=== PATIENT | female | born 1980 ===

== ENCOUNTER 2024-11-01 11:45 | Emergency (ER) | payer MEDICAID, SELFPAY ==
--- OUTSIDE RECORDS SUMMARY | 2019-08-24 07:37 | XMS_ITS | Continuity of Care Document ---
Author Organization [facility] vices Address [address] [place] [address] Phone Care Team Providers Care Flower Maker Name Role Phone Generic Provider, [facility] Unavailable Unavailabl e Allergies, Adverse Reactions, Alerts Substance Reaction Status Criticality tramadol Unknown Active No Information Penicillins Unknown Active No Information ibuprofen Unknown Active No Information Medications Medication Instructions Dosage Effective Dates (start - stop) Status Comments Cymbalta 30 mg capsule,delayed release TAKE 1 CAPSULE BY ORAL ROUTE EVERY DAY - Active Jentadueto 2.5 mg-1,000 mg tablet take 1 tablet by oral route 2 times every day with meals 1.00 tablet - Active E11.65 99 years Anabel Mcintyre U-300 Insulin 300 unit/mL (1.5 mL) subcutaneous pen INJECT 12 UNITS UNDER THE SKIN ONCE DAILY. - Active E11.65 99 years promethazine 25 mg tablet take 1 tablet by oral route every 4 - 6 hours as needed 25 MG - Active PIOGLITAZONE 30MG TAB TABLET TAKE 1 TABLET BY ORAL ROUTE EVERY DAY 30 MG - Active GABAPENTIN 600MG TAB TABLET TAKE 1 TABLET BY ORAL ROUTE 3 TIMES EVERY DAY 600 MG - Active atorvastatin 20 mg tablet take 1 tablet by oral route every day 20 MG - Active Alcohol Pads apply 1 unit by topical route 3 times every day when checking blood sugars E11.65 - Active Duration-99 years hydroxyzine HCl 25 mg tablet take 1 tablet by oral route 3 times every day as needed for anxiety 25 MG - Active use every 6-8 hours for itchyness lancets To test sugars 6 times a day - Active E11.9 99 years OneTouch Verio strips to test sugars 6 times a day E11.65 x 99years - Active OneTouch Verio IQ Meter Use as directed dx E11.65 - Active 99 years nicotine 21 mg/24 hr daily transdermal patch apply 1 patch by transdermal route every day and remove at bedtime 21 MG - Active baclofen 10 mg tablet take 1 tablet by oral route 3 times every day for withdrawal 10 MG - Active ONE TOUCH ULTRA TEST STRI TEST BLOOD SUGAR 6 TIMES A DAY 1 test strip - Active Procedures Procedure Date GLUCOSE BLOOD TEST GLYCATED HEMOGLOBIN TEST (A1C) 19 OFFICE/OUTPATIENT VISIT, EST GLUCOSE BLOOD TEST OFFICE/OUTPATIENT VISIT, EST PATIENT NOT SEEN GLUCOSE BLOOD TEST OFFICE/OUTPATIENT VISIT, EST GLUCOSE BLOOD TEST OFFICE/OUTPATIENT VISIT, EST GLUCOSE BLOOD TEST OFFICE/OUTPATIENT VISIT, EST Psych Diag Eval W/Med Serv Psychotherapy, 30 Minutes With Patient A OFFICE/OUTPATIENT VISIT, EST GLUCOSE BLOOD TEST OFFICE/OUTPATIENT VISIT, EST GLUCOSE BLOOD TEST OFFICE/OUTPATIENT VISIT, EST BH NO CHARGE GLUCOSE BLOOD TEST OFFICE/OUTPATIENT VISIT, EST GLUCOSE BLOOD TEST GLYCATED HEMOGLOBIN TEST (A1C) 19 OFFICE/OUTPATIENT VISIT, EST GLUCOSE BLOOD TEST OFFICE/OUTPATIENT VISIT, EST GLUCOSE BLOOD TEST OFFICE/OUTPATIENT VISIT, EST GLUCOSE BLOOD TEST OFFICE/OUTPATIENT VISIT, EST GLUCOSE BLOOD TEST GLYCATED HEMOGLOBIN TEST (A1C) 18 OFFICE/OUTPATIENT VISIT, EST OFFICE/OUTPATIENT VISIT, EST OFFICE/OUTPATIENT VISIT, EST GLUCOSE BLOOD TEST OFFICE/OUTPATIENT VISIT, EST GLUCOSE BLOOD TEST OFFICE/OUTPATIENT VISIT, EST GLUCOSE BLOOD TEST GLYCATED HEMOGLOBIN TEST (A1C) 18 OFFICE/OUTPATIENT VISIT, EST GLUCOSE BLOOD TEST OFFICE/OUTPATIENT VISIT, EST URINE TEST, BY VISUAL COLOR CO MPARISON OFFICE/OUTPATIENT VISIT, EST Psychotherapy, 45 Minutes With Patient N GLUCOSE BLOOD TEST GLYCATED HEMOGLOBIN TEST (A1C) 17 OFFICE/OUTPATIENT VISIT, EST GLUCOSE BLOOD TEST URINALYSIS NONAUTO W/O SCOPE URINE TEST, BY VISUAL COLOR CO MPARISON OFFICE/OUTPATIENT VISIT, EST GLUCOSE BLOOD TEST OFFICE/OUTPATIENT VISIT, EST OFFICE/OUTPATIENT VISIT, EST GLUCOSE BLOOD TEST GLYCATED HEMOGLOBIN TEST (A1C) 17 URINALYSIS NONAUTO W/O SCOPE OFFICE/OUTPATIENT VISIT, EST GLUCOSE BLOOD TEST BENEDRYL, TABLET, 25 MG DRAINAGE OF SKIN ABSCESS OFFICE/OUTPATIENT VISIT, EST GLUCOSE BLOOD TEST OFFICE/OUTPATIENT VISIT, EST GLUCOSE BLOOD TEST GLYCATED HEMOGLOBIN TEST (A1C) 17 OFFICE/OUTPATIENT VISIT, EST GLUCOSE BLOOD TEST OFFICE/OUTPATIENT VISIT, EST Psych Dx Eval Psychotherapy, 30 Minutes With Patient J GLUCOSE BLOOD TEST GLYCATED HEMOGLOBIN TEST (A1C) 16 OFFICE/OUTPATIENT VISIT, EST GLUCOSE BLOOD TEST OFFICE/OUTPATIENT VISIT, NEW GLUCOSE BLOOD TEST OFFICE/OUTPATIENT VISIT, EST GLUCOSE BLOOD TEST GLYCATED HEMOGLOBIN TEST (A1C) 16 URINALYSIS NONAUTO W/O SCOPE OFFICE/OUTPATIENT VISIT, EST GLUCOSE BLOOD TEST OFFICE/OUTPATIENT VISIT, EST GLYCATED HEMOGLOBIN TEST (A1C) 16 GLUCOSE BLOOD TEST URINALYSIS NONAUTO W/O SCOPE OFFICE/OUTPATIENT VISIT, EST GLUCOSE BLOOD TEST OFFICE/OUTPATIENT VISIT, EST PsyTXPT And Family 30 Minutes 5 GLUCOSE BLOOD TEST OFFICE/OUTPATIENT VISIT, EST GLUCOSE BLOOD TEST OFFICE/OUTPATIENT VISIT, EST GLUCOSE BLOOD TEST OFFICE/OUTPATIENT VISIT, NEW Advance Directives Directive Yes / No Effective Date File Name No Information Encounters Encounter Description Practice Location Reason(s) For Visit Diagnoses Date Provider Providers Copied on Encounter [facility], [address] [place] [address], [facility], tel:[phone] [facility] Womens Health No Information 0 Generic Provider [facility]. . [facility], [address] [place] [address], [facility], tel:[phone] [facility] Adult Medicine No Information 0 No Information [facility], [address] [place] [address], [facility], tel:[phone] [facility] Adult Medicine No Information 9 No Information [facility], [address] [place] [address], [facility], [place] tel:[phone] [facility] Adult Medicine No Information 9 [facility]. [address] [place] [address], [id number] [place], [facility], [place]. tel:[phone] OFFICE/OUTPA TIENT VISIT, EST [facility], [address] [place] [address], [facility], [place] tel:[phone] [facility] Adult Medicine Follow up (chief complaint) Body mass index (BMI) 45.0-49.9, adultEncounte r for screening, unspecifiedTy pe 2 diabetes mellitus without complications Generalized anxiety disorder Nov-0 9 No Information OFFICE/OUTPA TIENT VISIT, [facility], [address] [place] [address], [address], [place] tel:[phone] [facility] Adult Medicine Med Refills (chief complaint) Body mass index (BMI) 40.0-44.9, adultEncounte r for screening for diabetes mellitusType 2 diabetes mellitus with diabetic neuropathy, unspecifiedMe dication refill Sep-3 9 [facility]. [address] [place] [address], [id number] [place], [address], [place]. tel:[phone] [facility], [address] [place] [address], [facility], [place] tel:[phone] [facility] Adult Medicine Meds Concern (chief complaint) Body mass index (BMI) 40.0-44.9, adultEncounte r for screening, unspecified Jul-2 9 No Information OFFICE/OUTPA TIENT VISIT, [facility], [address] [place] [address], [address], [place] tel:[phone] [facility] Adult Medicine Follow Up (chief complaint)di abetes (chief complaint) Body mass index (BMI) 39.0-39.9, adultEncounte r for screening, unspecifiedTy pe 2 diabetes mellitus without complications Generalized anxiety disorder Jul-0 9 No Information OFFICE/OUTPA TIENT VISIT, [facility], [address] [place] [address], [facility], [place] tel:[phone] [facility] Adult Medicine Follow up (chief complaint) Encounter for screening, unspecifiedBo dy mass index (BMI) 38.0-38.9, adultType 2 diabetes mellitus without complications 9 No Information OFFICE/OUTPA TIENT VISIT, [facility], [address] [place] [address], [address], [place] tel:[phone] [facility] Adult Medicine Panic attack (chief complaint) Body mass index (BMI) 38.0-38.9, adultEncounte r for screening for diabetes mellitusType 2 diabetes mellitus without complication, with long-term current use of insulinLong term (current) use of insulinPanic attacks 9 No Information Psych Diag Eval W/Med Serv [facility], [address] [place] [address], [address], [place] tel:[phone] [facility] Behavioral Health Moderate opioid use disorderCocai ne use disorder, moderate 9 No Information Psychotherap y, 30 Minutes With Patient [facility], [address] [place] [address], [address], [place] tel:[phone] [facility] Behavioral Health BH Consult (chief complaint) Moderate opioid use disorderCocai ne use disorder, moderate May-3 9 [facility] [place] [address], [id number] [place], [id number], [place]. tel:[phone] OFFICE/OUTPA TIENT VISIT, [facility], [address] [place] [address], [address], [place] tel:[phone] [facility] Adult Medicine Nausea medications request (chief complaint) Body mass index (BMI) 38.0-38.9, adultNauseaOp ioid withdrawal May-2 9 No Information OFFICE/OUTPA TIENT VISIT, [facility], [address] [place] [address], [address], [place] tel:[phone] [facility] Adult Medicine Referral request (chief complaint) Body mass index (BMI) 38.0-38.9, adultEncounte r for screening, unspecifiedSu bstance abuseCurrent moderate episode of major depressive disorder without prior episodeGenera lized anxiety disorder May- 9 No Information OFFICE/OUTPA TIENT VISIT, [facility], [address] [place] [address], [address], [place] tel:[phone] [facility] Adult Medicine Addiction treatment information (chief complaint) Body mass index (BMI) 37.0-37.9, adultEncounte r for screening, unspecifiedDr ug abuse counseling and surveillance of drug abuser May-0 9 No Information [facility], [address] [place] [address], [address], [place] tel:[phone] [facility] Behavioral Health depression (chief complaint)garcia bstance abuse (chief complaint) Cocaine abuse w/ psychosisOpio id use, unspecified, uncomplicated Unspecified mood [affective] disorderCanna bis dependence 9 No Information OFFICE/OUTPA TIENT VISIT, [facility], [address] [place] [address], [address], [place] tel:[phone] [facility] Adult Medicine High blood sugars (chief complaint) Body mass index (BMI) 37.0-37.9, adultEncounte r for screening, unspecifiedTy pe 2 diabetes mellitus without complications 9 No Information OFFICE/OUTPA TIENT VISIT, [facility], [address] [place] [address], [address], [place] tel:[phone] [facility] Adult Medicine Transfer Care (chief complaint) Body mass index (BMI) 37.0-37.9, adultEncounte r for screening, unspecifiedHe althcare maintenanceAg oraphobia with panic disorderGener alized anxiety disorderType 2 diabetes mellitus without complications 9 No Information [facility], [address] [place] [address], [address], [place] tel:[phone] [facility] Adult Medicine No Information No Information OFFICE/OUTPA TIENT VISIT, [facility], [address] [place] [address], [address], [place] tel:[phone] [facility] Adult Medicine headache (chief complaint) Body mass index (BMI) 40.0-44.9, adultEncounte r for screening, unspecifiedIn tractable headache, unspecified chronicity pattern, unspecified headache type 8 No Information OFFICE/OUTPA TIENT VISIT, [facility], [address] [place] [address], [address], [place] tel:[phone] [facility] Adult Medicine Med. refill (chief complaint) Body mass index (BMI) 40.0-44.9, adultEncounte r for screening, unspecifiedTy pe 2 diabetes mellitus with diabetic polyneuropath y, with long-term current use of insulinLong term (current) use of insulinEmerge ncy contraception 8 No Information OFFICE/OUTPA TIENT VISIT, [facility], [address] [place] [address], [address], [place] tel:[phone] [facility] Adult Medicine med refill (chief complaint) Body mass index (BMI) 40.0-44.9, adultEncounte r for screening, unspecifiedCo dalila abuse 8 No Information OFFICE/OUTPA TIENT VISIT, [facility], [address] [place] [address], [address], [place] tel:[phone] [facility] Adult Medicine Med Refill (chief complaint)di abetes (chief complaint) Depression, unspecified depression typeGeneraliz ed anxiety disorderPainf ul diabetic neuropathyTyp e 2 diabetes mellitus with hyperglycemia , with long-term current use of insulinEncoun ter for screening, unspecifiedBo dy mass index (BMI) 39.0-39.9, adultEmergenc y contraception 8 No Information OFFICE/OUTPA TIENT VISIT, [facility], [address] [place] [address], [address], [place] tel:[phone] [facility] Adult Medicine Insulin (chief complaint)di abetes (chief complaint)An xiety (chief complaint) Body mass index (BMI) 38.0-38.9, adultType 2 diabetes mellitus without complications Generalized anxiety disorderUrine ketones 8 No Information OFFICE/OUTPA TIENT VISIT, [facility], [address] [place] [address], [address], [place] tel:[phone] [facility] Adult Medicine test (chief complaint)an xiety, depression (chief complaint) Body mass index (BMI) 40.0-44.9, adultAnxietyT ype 2 diabetes mellitus with hyperglycemia , with long-term current use of insulin 8 No Information OFFICE/OUTPA TIENT VISIT, [facility], [address] [place] [address], [address], [place] tel:[phone] [facility] Podiatry diabetes (chief complaint) Body mass index (BMI) 40.0-44.9, adultEncounte r for screening for diabetes mellitusType 2 diabetes mellitus without complications Rheumatoid arthritis without rheumatoid factor, unspecified site 8 No Information OFFICE/OUTPA TIENT VISIT, [facility], [address] [place], [address], [place] tel:[phone] [facility] Adult Medicine Numbness in left hand (chief complaint) Body mass index (BMI) 40.0-44.9, adultEncounte r for screening for diabetes mellitusHand numbness 2 8 [facility] [address] [facility], [id number] [place], [address], [place]. tel:[phone] OFFICE/OUTPA TIENT VISIT, [facility], [address] [place], [address], [place] tel:[phone] [facility] Adult Medicine ^ Anxiety (chief complaint) Body mass index (BMI) 40.0-44.9, adultEncounte r for screening, unspecifiedAn xietyType 2 diabetes mellitus with hyperglycemia , with long-term current use of insulin 8 No Information OFFICE/OUTPA TIENT VISIT, [facility], [address] [place], [address], [place] tel:[phone] [facility] Adult Medicine Med refill (chief complaint)Di abetes (chief complaint) Encounter for screening, unspecifiedBo dy mass index (BMI) 40.0-44.9, adultType 2 diabetes mellitus with hyperglycemia , with long-term current use of insulinLong term (current) use of insulinDepres rikki, unspecified depression typeSubstance abuse 8 No Information OFFICE/OUTPA TIENT VISIT, [facility], [address] [place], [address], [place] tel:[phone] [facility] Womens Health morning after pill (chief complaint) Encounter for test, result negativeEmerg ency contraception Encounter for sexually transmitted disease screeningHist ory of exposure to HIV 7 No Information Psychotherap y, 45 Minutes With Patient [facility], [address] [place], [address], [place] tel:[phone] [facility] Behavioral Health BH Consult (chief complaint) Cocaine useOpioid use, unspecified, uncomplicated 7 [facility]. [address] [facility], [id number] [place], [id number], [place]. tel:[phone] OFFICE/OUTPA TIENT VISIT, [facility], [address] [place] [address], [address], [place] tel:[phone] [facility] Adult Medicine feeling depressed (chief complaint) Body mass index (BMI) 40.0-44.9, adultEncounte r for screening, unspecifiedDe pressed mood No Information OFFICE/OUTPA TIENT VISIT, [facility], [address] [place] [address], [address], [place] tel:[phone] [facility] Adult Medicine Nausea (chief complaint)Di abetes (chief complaint) NauseaType 2 diabetes mellitus without complication, without long-term current use of insulinBody mass index (BMI) 40.0-44.9, adultEncounte r for screening for diabetes mellitusEncou nter for screening, unspecifiedEn counter for test, result negativeEncou nter for screening examination for sexually transmitted diseaseImmuni zation refused No Information OFFICE/OUTPA TIENT VISIT, [facility], [address] [place] [address], [address], [place] tel:[phone] [facility] Adult Medicine cc f/u anxiety (chief complaint) Body mass index (BMI) 40.0-44.9, adultEncounte r for screening, unspecifiedGe neralized anxiety disorderType 2 diabetes mellitus without complications No Information OFFICE/OUTPA TIENT VISIT, [facility], [address] [place] [address], [address], [place] tel:[phone] [facility] Adult Medicine CC anxiet and DM (chief complaint) Encounter for screening, unspecifiedPa cadence disorder w/ agoraphobiaGe neralized Anxiety DisorderType 2 diabetes mellitus without complications No Information OFFICE/OUTPA TIENT VISIT, [facility], [address] [place] [address], [address], [place] tel:[phone] [facility] Adult Medicine Anxiety/Inso mnia (chief complaint) Body mass index (BMI) 40.0-44.9, adultEncounte r for screening, unspecifiedDi abetes type 2, uncontrolledA nxiousness No Information [facility], [address] [place] [address], [address], [place] tel:[phone] [facility] Adult Medicine No Information No Information OFFICE/OUTPA TIENT VISIT, [facility], [address] [place] [address], [address], [place] tel:[phone] [facility] Adult Medicine Swelling of 4th digit L.Hand (chief complaint) Body mass index (BMI) 40.0-44.9, adultEncounte r for screening, unspecifiedFi nger infection No Information [facility], [address] [place] [address], [address], [place] tel:[phone] [facility] Adult Medicine History of suicidal ideation No Information OFFICE/OUTPA TIENT VISIT, [facility], [address] [place] [address], [address], [place] tel:[phone] [facility] Adult Medicine ER F/U (chief complaint) Body mass index (BMI) 40.0-44.9, adultEncounte r for screening for diabetes mellitusPain in unspecified kneeRheumatoi d arthritis without rheumatoid factor, unspecified siteAdjustmen t disorder with emotional disturbance No Information OFFICE/OUTPA TIENT VISIT, [facility], [address] [place] [address], [address], [place] tel:[phone] [facility] Adult Medicine Follow Up of ER (chief complaint)Co ugh (chief complaint)Ot her Complaints (chief complaint) Body mass index (BMI) 40.0-44.9, adultEncounte r for screening for diabetes mellitusEncou nter for screening, unspecifiedCo ughRheumatoid arthritis without rheumatoid factor, unspecified siteEncounter for administrativ e exam No Information OFFICE/OUTPA TIENT VISIT, [facility], [address] [place] [address], [address], [place] tel:[phone] [facility] Adult Medicine ER follow up (chief complaint) Body mass index (BMI) 40.0-44.9, adultEncounte r for screening for diabetes mellitusSeron egative rheumatoid arthritisHist ory of suicidal ideation No Information Psych Dx Eval [facility], [address] [place] [address], [address], [place] tel:[phone] [facility] Behavioral Health Initial Assessment (chief complaint) Opioid use, unspecified, uncomplicated Cocaine abuse w/ psychosisUnsp ecified mood [affective] disorder No Information Psychotherap y, 30 Minutes With Patient [facility], [address] [place] [address], [address], [place] tel:[phone] [facility] Behavioral Health Consult/ Engagement into treatment (chief complaint) Opioid use, unspecified, uncomplicated Cocaine abuse w/ psychosisUnsp ecified mood [affective] disorder No Information OFFICE/OUTPA TIENT VISIT, [facility], [address] [place] [address], [address], [place] tel:[phone] [facility] Adult Medicine Diabetes (chief complaint) Body mass index (BMI) 40.0-44.9, adultEncounte r for screening for diabetes mellitusEncou nter for screening, unspecifiedDi abetes type 2, uncontrolledP ain in unspecified kneeDepressed mood No Information OFFICE/OUTPA TIENT VISIT, [facility], [address] [place] [address], [address], [place] tel:[phone] [facility] Podiatry diabetes (chief complaint)Pa in foot (chief complaint) Body mass index (BMI) 40.0-44.9, adultEncounte r for screening for diabetes mellitusRight foot pain No Information OFFICE/OUTPA TIENT VISIT, [facility], [address] [place] [address], [address], [place] tel:[phone] [facility] Adult Medicine Eye irritation (chief complaint) Body mass index (BMI) 45.0-49.9, adultEncounte r for screening for diabetes mellitusEye irritation 6 No Information OFFICE/OUTPA TIENT VISIT, [facility], [address] [place] [address], [address], [place] tel:[phone] [facility] Adult Medicine Diabetes (chief complaint) Body mass index (BMI) 45.0-49.9, adultEncounte r for screening for diabetes mellitusEncou nter for screening, unspecifiedTy pe 2 diabetes mellitus without complications Pain in unspecified knee Sep- 6 No Information OFFICE/OUTPA TIENT VISIT, [facility], [address] [place] [address], [address], [place] tel:[phone] [facility] Adult Medicine Diabetes (chief complaint) Body mass index (BMI) 40.0-44.9, adultEncounte r for screening for diabetes mellitusPainf ul diabetic neuropathy Robbin- 6 No Information OFFICE/OUTPA TIENT VISIT, [facility], [address] [place] [address], [address], [place] tel:[phone] [facility] Adult Medicine diabetes/kne e pain (chief complaint) Body mass index (BMI) 40.0-44.9, adultEncounte r for screening, unspecifiedEn counter for screening for diabetes mellitusDiabe mian type 2, uncontrolledB ilateral chronic knee painPain in left kneeOther chronic painHistory of pituitary tumorEncounte r for preventive health examinationHi story of pancreatitisD epressed mood 6 No Information OFFICE/OUTPA TIENT VISIT, [facility], [address] [place] [address], [address], [place] tel:[phone] [facility] Adult Medicine diabetes (chief complaint)Me d Refill (chief complaint) Body mass index (BMI) 40.0-44.9, adultEncounte r for screening for diabetes mellitus May-0 6 No Information PsyTXPT And Family 30 Minutes [facility], [address] [place] [address], [address], [place] tel:[phone] [facility] Behavioral Health Integration Visit (chief complaint) Panic disorder without agoraphobia 5 No Information OFFICE/OUTPA TIENT VISIT, [facility], [address] [place] [address], [address], [place] tel:[phone] [facility] Adult Medicine Daibetes (chief complaint) Encounter for screening for diabetes mellitusDiabe mian mellitus type 2, controlled, without complications Constipation No Information OFFICE/OUTPA TIENT VISIT, [facility], [address] [place], [address], [place] tel:[phone] [facility] Adult Medicine Diabetes/Kne e pain (chief complaint) Body mass index (BMI) 40.0-44.9, adultEncounte r for screening for diabetes mellitusDiabe mian mellitus type 2, controlled, without complications Bilateral knee pain No Information OFFICE/OUTPA TIENT VISIT, [facility], [address] [place], [address], [place] tel:[phone] [facility] Adult Medicine Bilateral patella pain (chief complaint) Encounter for screening for diabetes mellitusRheum atoid arthritis, unspecified No Information Family History Family Member Type Diagnosis Age At Onset Mother Problem (finding) malignant neoplasm of c ervix uteri Father Problem (finding) diabetes mellitus type 2 Payers Payer name Insurance type Covered libertarian ID Rebeka stallworth(s) MELIDA Frias [id number] Social History Type Description Quantity Date Captured Comments Alcohol Use Details Unknown Caffeine Use Details Unknown Tobacco Use Status Smoking Status No Information Sex Female Sexual Orientation Straight or heterosexual Nov Gender Identity Female Chief Complaint And Reason For Visit No Information Reason For Referral Reason For Referral No Information Plan Of Treatment Date Type Action Status Goal Dietary management education , guidance, and counseling completed Goal Dietary management education , guidance, and counseling completed Goal Tobacco cessation counseling completed Goal Tobacco cessation counseling completed Goal Dietary management education , guidance, and counseling completed Goal Dietary management education , guidance, and counseling completed Goal Dietary management education , guidance, and counseling completed Goal Tobacco cessation counseling completed Goal Dietary management education , guidance, and counseling completed Goal Dietary management education , guidance, and counseling completed Goal Tobacco cessation counseling completed Goal Tobacco cessation counseling completed Goal Dietary management education , guidance, and counseling completed Goal Dietary management education , guidance, and counseling completed Goal Dietary management education , guidance, and counseling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 adult 1. Klonopin and Cymb jayshree refilled today2. Follow up with counsellor as scheduled3. Follow up with PCP in 3 weeks Related to Anxiety 1. Complete ordered labs2. Follow up three weeks with meter Related to Type 2 diabetes mellitus with hyperglycemia, with long-term current use of insulin Dietary management e ducation, guidance, and counseling Related to Body mass index (BMI) 40.0-44.9, adult Weight monitoring Related to Bod y mass index (BMI) 40.0-44.9, adult DFN Diabetic foot ex amination: The diabetic foot examination consists of upper and lower extremity review of findings including pulses, reflexes, epicritic sensation as well as review of current shoe/protective gear and supportive (cane. crutch) gear. It also includes a discussion about medication adherence, symptoms generally or changes in status or medication. DFN yearly Yearly examination for diabetes. There are no foot issues. Continue to monitor as needed and return if foot issues arise before next appointment Related to Type 2 diabetes mellitus without complications Weight monitoring Related to Bod y mass index (BMI) 40.0-44.9, adult Dietary management e ducation, guidance, and counseling Related to Body mass index (BMI) 40.0-44.9, adult 1. Methocarbamol as prescribed. 2. Ibuprofen as needed. 3. Increase water intake and potassium intake. 4. Plenty of rest for the next 72 hours. 5. Arm and hand exercises. 6. Warm moist heat up to 4 times daily. If symptoms do not improve; f/u in clinic or ED. Related to Hand numbness Giving encouragement to exercise Related to Body mass index (BMI) 40.0-44.9, adult Dietary management e ducation, guidance, and counseling Related to Body mass index (BMI) 40.0-44.9, adult Weight monitoring Related to Bod y mass index (BMI) 40.0-44.9, adult Dietary management e ducation, guidance, and counseling Related to Body mass index (BMI) 40.0-44.9, adult Continue cymbalta as prescribed. Please do not take more than recommended amount. You have been referred to Behavioral Health for evaluation of your depression. Please go to the Behavioral Health department on the first floor and make an appointment. If you develop thoughts of hurting yourself or others, please call 911 or go to the ER immediately. Related to Depression, unspecified depression type Continue taking medi cations as prescribed. Follow up in 3 weeks in DM clinic. Please bring your meter to all appointments. Limit white foods such as white bread, rice, and pasta. Regular exercise can help to lower blood sugar and promote weight loss. Your exercise goal is 30 minutes, 5 days per week. Increase your water intake to 7-8 glasses per day. Please continue to monitor your home blood sugar in the morning after you wake up (fasting) and two hours after dinner. Bring your blood sugar meter to every appointment so we can discuss the numbers together.Diabetics are at an increased risk of wounds that do not heal, so please inspect your feet daily and return if any cuts are not healing properly. Related to Type 2 diabetes mellitus with hyperglycemia, with long-term current use of insulin Weight monitoring Related to Bod y mass index (BMI) 40.0-44.9, adult Dietary management e ducation, guidance, and counseling Related to Body mass index (BMI) 40.0-44.9, adult Weight monitoring Related to Bod y mass index (BMI) 40.0-44.9, adult Dietary management e ducation, guidance, and counseling Related to Body mass index (BMI) 40.0-44.9, adult Pt unsure if she rec eived flu vaccine this year. She will check with her local pharmacy. Related to Immunization refused Please complete labs. Related to Encounter for screening examination for sexually transmitted disease Continue taking medi cations as prescribed. Test strips have been refilled. Start checking once in the morning fasting, and 2 hrs after meals. Limit white foods such as white bread, rice, and pasta. Regular exercise can help to lower blood sugar and promote weight loss. Your exercise goal is 30 minutes, 5 days per week. Increase your water intake to 7-8 glasses per day. Please continue to monitor your home blood sugar in the morning after you wake up (fasting) and two hours after dinner. Bring your blood sugar meter to every appointment so we can discuss the numbers together.Diabetics are at an increased risk of wounds that do not heal, so please inspect your feet daily and return if any cuts are not healing properly. Related to Type 2 diabetes mellitus without complication, without long-term current use of insulin Stay hydrated with f luids. Zofran as needed. Return sooner for follow up if symptoms worsen. Related to Nausea Weight monitoring Related to Bod y mass index (BMI) 40.0-44.9, adult Dietary management e ducation, guidance, and counseling Related to Body mass index (BMI) 40.0-44.9, adult Weight monitoring Related to Bod y mass index (BMI) 40.0-44.9, adult Dietary management e ducation, guidance, and counseling Related to Body mass index (BMI) 40.0-44.9, adult 1. Meter provided to you today2. Follow up next available to discuss chronic conditions Related to Diabetes type 2, uncontrolled 1. Klonopin prescrip tion given for one pill2. There will be NO REFILLS of this medication without close psych supervision3. Come to the clinic tomorrow morning for walk in psych visit, urgent referral provided for you today Related to Anxiousness Weight monitoring Related to Bod y mass index (BMI) 40.0-44.9, adult Dietary management e ducation, guidance, and counseling Related to Body mass index (BMI) 40.0-44.9, adult keflex 4 times a day for 7 days. pack and wash out in office. can remove packing in 2 days nabumeton 500mg BID as needed for pain return to office no thursday for evaluation Related to Finger infection Weight monitoring Related to Bod y mass index (BMI) 40.0-44.9, adult Dietary management e ducation, guidance, and counseling Related to Body mass index (BMI) 40.0-44.9, adult 1. Complete x-rays a s ordered at [facility]. Contact rheumatology Related to Rheumatoid arthritis without rheumatoid factor, unspecified site 1. No further medica tion for mental health will be given at this time due to ineffecitveness of previous courses and overuse of current medication2. Please call your pending mental health provider to get a sooner appointment3. We will attempt to get you some home care services to evaluate your living situation and give you coping mechanisms 4. Follow up one month or as needed, if having thoughts of self harm call 911 immediately Related to Adjustment disorder with emotional disturbance Weight monitoring Related to Bod y mass index (BMI) 40.0-44.9, adult Dietary management e ducation, guidance, and counseling Related to Body mass index (BMI) 40.0-44.9, adult Nuha galdamez. Kyle nase daily - trial. Follow up with your PCP. Related to Cough Patient asked to fol low up with her PCP for her non ER/ non urgent conditions. She is in need of follow up to address her multiple joint pains, diabetes. Patient acknowledged understanding. Referral to nutrition for further dietary review and diabetes education. Related to Encounter for administrative exam Dietary management e ducation, guidance, and counseling Related to Body mass index (BMI) 40.0-44.9, adult Weight monitoring Related to Bod y mass index (BMI) 40.0-44.9, adult 1. STOP Zoloft2. Use hydroxyzine as needed for anxiety3. Call 911 if you have ANY thoughts of harming yourself in the future4. Keep appointment with mental health professionals Related to History of suicidal ideation 1. Complete x-ray2. Copy of referral given to you today for rheumatologist3. Restart Celebrex twice daily4. Follow up one month Related to Seronegative rheumatoid arthritis Weight monitoring Related to Bod y mass index (BMI) 40.0-44.9, adult Dietary management e ducation, guidance, and counseling Related to Body mass index (BMI) 40.0-44.9, adult 1. Start sertraline once daily2. Follow up one month3. Keep upcoming appointment with PHOTOGRAPHIC LITHOGRAPHER Related to Depressed mood 1. Continue current pain management plan2. Follow up as needed Related to Pain in unspecified knee 1. Continue current insulin doses2. Stop metformin3. START Jentaduetto twice daily4. Follow up one month Related to Diabetes type 2, uncontrolled Weight monitoring Related to Bod y mass index (BMI) 40.0-44.9, adult Dietary management e ducation, guidance, and counseling Related to Body mass index (BMI) 40.0-44.9, adult The pain began short ly after a change to new boots.. 1. Use fracture shoe x 1 week 2. Voltaren gel to area. 3. Light duty x 1 week rquested former records. Says she had RA diagnosis and treatment at last facility ([place] of state[place] Requested records today. Currently no positivie RA titre. An examination of the lower extremities was done. The examination includes mechanical, dermatologic, neurologic, vascular and orthopedic components as needed for diagnosis or clarificantion of patient complaint or question about general condition. Significant deviations from normal are reported. Related to Right foot pain Weight monitoring Related to Bod y mass index (BMI) 40.0-44.9, adult Dietary management e ducation, guidance, and counseling Related to Body mass index (BMI) 40.0-44.9, adult Use eye dropsIf symp toms dont resolve see ER / clinical lab specialist. Related to Eye irritation Weight monitoring Related to Bod y mass index (BMI) 45.0-49.9, adult Dietary management e ducation, guidance, and counseling Related to Body mass index (BMI) 45.0-49.9, adult 1. Labs will confirm or refute the presence of rheumatoid arthritis. Please complete so we can make the proper referral Related to Pain in unspecified knee 1. Complete labs2. D ECREASE Toujeo to 80 units twice per day3. Continue current Novolog dose4. Await endocine appointment in 5. Follow up one month Related to Type 2 diabetes mellitus without complications Dietary management e ducation, guidance, and counseling Related to Body mass index (BMI) 45.0-49.9, adult Weight monitoring Related to Bod y mass index (BMI) 45.0-49.9, adult 1. Start Lyrica 75mg twice per day2. Refill insulins and use as ordered. Contact office if you run out3. COMPLETE YOUR LABS4. Make podiatry and appts5. Follow up next avail6. Please keep all scheduled appointments Related to Painful diabetic neuropathy Dietary management e ducation, guidance, and counseling Related to Body mass index (BMI) 40.0-44.9, adult Weight monitoring Related to Bod y mass index (BMI) 40.0-44.9, adult 1. Please make appoi ntment with [facility] employee Ruthann Related to Depressed mood 1. Make MOLD MAKER APPRENTICE, dental and eye doctor appointments Related to Encounter for preventive health examination 1. Complete CT of th e head2. Please note, we will need labs completed before CT can performed due to use of contrast dye Related to History of pituitary tumor 1. STOP Levemir2. ST ART Toujeo 110 units twice per day3. CONTINUE Humalog 4. Follow up in one month Related to Diabetes type 2, uncontrolled 1. Complete x-rays o f knees and hands to evaluate for presence of RA2. Complete labs3. Follow up one month Related to Bilateral chronic knee pain Weight monitoring Related to Bod y mass index (BMI) 40.0-44.9, adult Dietary management e ducation, guidance, and counseling Related to Body mass index (BMI) 40.0-44.9, adult pt left prior to com pleting visit. no meds refilled Related to Encounter for screening for diabetes mellitus Weight monitoring Related to Bod y mass index (BMI) 40.0-44.9, adult Dietary management e ducation, guidance, and counseling Related to Body mass index (BMI) 40.0-44.9, adult 1. Start celebrex tw ice daily2. Complete labs to confirm RA diagnosis3. Will place rheumatology referral Related to Bilateral knee pain 1. Complete labs2. F ollow up in Diabetes Clinic to attempt to decrease your insulin volume 3. Make appointments with foot and eye doctors Related to Diabetes mellitus type 2, controlled, without complications Dietary management e ducation, guidance, and counseling Related to Body mass index (BMI) 40.0-44.9, adult Weight monitoring Related to Bod y mass index (BMI) 40.0-44.9, adult Assessments Type Assessment Date No Information Patient Care Teams Name Effective Dates (start - stop) Status Members No Information
--- NOTE | 2024-11-01 11:52 | ED_ITS ---
HPI - Alcohol General Chief Complaint: ETOH/Substance Use Stated Complaint: LETHARGIC,ETOH USE,WANTS DETOX COCAIN/ETOH Source: patient, EMS and old records reviewed Mode of arrival: EMS Limitations: no limitations History of Present Illness ED Provider: TIO BROWN narrative: 43 yo female with PMH of ETOH abuse and cocaine use who went to [email or web address] today to help get a ride to [facility] in [place]. She was sleepy so they called 911 and and sent her here. She is very upset she is here. She feels she was lied to. She has no SI/HI. She was not given narcan. She is refusing care at this time. Patient has been up and walking around the room. MD complaint: desires rehab Last drink: Hours (ago) Chronic alcohol use: Yes Previous visits for alcohol intoxication: No Recent trauma: No Associated symptoms: denies other symptoms Treatments prior to arrival: none Related Data Allergies Allergy/AdvReac Type Severity Reaction Status Date / Time No Known Allergies Allergy Verified 11/01/24 12:13 Review of Systems Review of Systems: Yes all other systems are reviewed and are negative [facility] Past Medical History Medical History Alcohol abuse Social History Social History (Updated 11/01/24 @ 12:20 by Enid Meade DO) Patient Tobacco Use Status: Tobacco use Unknown Physical Exam ED Vital Signs: Vital Signs - 24 hr 11/01/24 12:10 Temperature 98.6 F Pulse Rate 78 Respiratory Rate 14 Blood Pressure 132/77 Pulse Oximetry 98 Oxygen Delivery Method Room Air BMI result Body Mass Index 33.3 Appearance: Alert does appear slightly under the influence but she is ambulating on her own and has no gait instability. Oriented X3. No acute distress. Eyes: Pupils equal, round and reactive to light. ENT: Pharynx normal. atraumatic Neck: Normal inspection. Neck supple. CVS: Pulses normal. Respiratory: No respiratory distress. B Abdomen: atraumatic Skin: Skin warm and dry. Normal skin color. Extremities: No lower extremity edema. Neuro: Oriented X 3. No motor deficit. No sensory deficit. Medical Decision Making Medical Decision Making [facility] Narrative: 43 yo female with ETOH use disorder and cocaine disorder sent her prior to rehab as staff felt she was under the influence. she has stable VS, she has not needed narcan - she refuses any work up here. she has a steady gait. She does not want to stay for help. At this time will DC her AMA. She is able to answer all questions and understands what we are offering. Differential Diagnosis Differential Diagnoses: The differential diagnosis associated with the presentation includes substance abuse disorder Admission/Observation Consideration of admission/observation: Escalation of care including admission/observation considered refuses all care refuses SUDE Lab Data MDM Lab Attestation statement: I reviewed the patient's lab results. EMS glucose 106 Independent Historian Clinical information obtained from an independent historian. History obtained from or confirmed by: EMS External Record Review External record reviewed: Outpatient record Medications Administered Discontinued Medications Generic Name Dose Route Start Last Admin Trade Name Cristian PRN Reason Stop Dose Admin Naloxone HCl 8 mg 11/01/24 12:13 11/01/24 12:21 Naloxone Hcl Nasal Take Home 4 Mg [place] NOSTRILALT 11/01/24 12:14 8 mg ONCE ONE Administration Naloxone HCl 8 mg 11/01/24 12:14 11/01/24 12:21 Naloxone Hcl Nasal Take Home 4 Mg [place] NOSTRILALT 11/01/24 12:15 Not Given ONCE ONE Discharge Plan Discharge Clinical Impression: Alcohol use disorder, Cocaine abuse Patient Disposition: Left Against Medical Advice Instructions: Cocaine Use Disorder (ED), Abuse of Alcohol (ED), Against Medical Advice (ED) Additional Instructions: Alcohol use disorder You were seen in the Emergency Department today for treatment of alcohol use di sorder.? You may have been given medications to help with your withdrawal symptoms.? Please do not drink alcohol with them. This is very dangerous and can cause respiratory depression or other adverse reactions depending on the medication. If you would like to cut down or stop your alcohol use please consider calling our outpatient Addiction Treatment office:? [facility] (M-F [id number]) [address] [facility] [address] You have also been given a list of treatment providers in the area that can assist as well.? If you experience seizures, vomiting blood, black stools, falls, severe headache, chest pain, fevers, trouble breathing, hallucinations or any other concerns you need to call 911 or seek immediate care. Please stay hydrated.
[2024-11-01 12:10] VITALS: BP 115/75; BP 132/77; PULSE 70; PULSE 78; RESP 14; TEMP 37; O2SAT 96; O2SAT 98; BMI 33.3
[2024-11-01] MEDS: Naloxone HCl Nasal TAKE HOME 4 MG SPRAY 8 MG NOSTRILALT (12:21)
--- NOTE | 2024-11-01 12:40 | PC.NURSE ---
Addendum entered by Khadijah Finley RN 11/01/24 12:42: patient given 2 4mg narcan to go, safe injection kit and dc papers. patient yelling at this RN about dc Original Note: patient agitated after ems drop off. patient does not want to stay, being manipulative towards staff. ED provider at bedside. patient fixated on this nurse being in room. patient denies lab work/medical work up. patient and provider agreed patient could leave. patient has steady gait. patient given belongings and signed ama papers. IV removed by this RN
--- OUTSIDE RECORDS SUMMARY | 2024-11-01 16:36 | XMS_ITS | Encounter Summary ---
Author Organization [employer] Address [address] [place] [address] [address] [place] [address] Care Team Providers Care Fusing Furnace Loader Name Role Phone Unavailable Primary Care Provider Unavailabl e Reason for Visit * Reason Comments Med Refill Encounter Details Date Type Department Care Team (Late st Contact Info) Description 06/25/2022 Refill [facility] [address], [place] [id number] Felton Nascimento BDJoyce [address] [place], [place] [id number] Dental abscess Social History Tobacco Use Types Packs/Day Years Used Date Smoking Tobacco: Every Day Cigarettes Smokeless Tobacco: Current Comments:Vapes Comments Unknown Sex and Gender Information Value Date Recorded Sex Assigned at Female 03/18/2022 2:40 PM EST Legal Sex Female 2:06 PM EST Gender Identity Female 03/18/2022 2:40 PM EST Sexual Orientation Don't know 03/18/2022 2: 40 PM EST documented as of this encounter Plan of Treatment Not on file documented as of this encounter Visit Diagnoses Diagnosis Dental abscess Periapical abscess without sinus documented in this encounter
--- OUTSIDE RECORDS SUMMARY | 2024-11-01 16:36 | XMS_ITS | Clinical Summary ---
Author Organization [facility] Address [address] [facility] [address] [place] [phone] Phone Care Team Providers Care Housing Officer Name Role Phone Bridget Kitchen PA-C Primary Care Provid er Allergies Active Allergy Reactions Criticality Noted Date Comments Ibuprofen 02/02/2024 Penicillins Ulcer Medium 02/02/2024 Tramadol 02/02/2024 Medications insulin aspart U-100 (NOVOLOG) 100 unit/mL injection vial Inject 30 Units under the skin 3 (three) times a day before meals. Active insulin degludec U-200 (TRESIBA FLEXTOUCH) 200 unit/mL (3 mL) InPn injection pen Inject 50 Units under the skin nightly at bedtime. Active metFORMIN (GLUCOPHAGE-XR) 500 MG 24 hr tablet Take 2 tablets by mouth 2 (two) times a day. Active zolpidem (AMBIEN) 10 mg tablet Take 10 mg by mouth nightly at bedtime. Active QUEtiapine (SEROQUEL) 25 MG tablet Take 50 mg by mouth nightly at bedtime. Active gabapentin (NEURONTIN) 300 MG capsule Take 400 mg by mouth 4 (four) times a day. Active cyanocobalamin, vitamin B-12, 1000 MCG tablet Take 1,000 mcg by mouth daily. Active diclofenac sodium (VOLTAREN) 75 MG EC tabletIndicatio ns:Seronegative rheumatoid arthritis,Bilat eral chronic knee pain Take 1 tablet (75 mg total) by mouth 2 (two) times a day with meals. As needed for joint pain 60 tablet 1 Active Additional Information Patient not taking.Reported on 03/07/2024 hydroxychloroqu ine (PLAQUENIL) 200 mg tabletIndicatio ns:Seronegative rheumatoid arthritis Take 1 tablet (200 mg total) by mouth 2 (two) times a day with meals. 180 tablet Active Active Problems Problem Noted Date Diagnosed Date Seronegative rheumatoid arthritis 02/25/2024 Overview (02/25/2024): Dx'd by rheum Dr. Morataya but no relevant records available for my review today Patient is unable to recall specific DMARD therapy Assessment & Plan (02/25/2024 4:02 PM EST): Question accuracy of rheumatoid arthritis dx; no small joint synovitis or joint effusion amenable to diagnostic arthrocentesis today. DDx includes established dx of diabetic neuropathy as well as polyarticular OA. Baseline plain films and updated labs today; patient amenable to trial diclofenac to replace current ibuprofen. She is advised to avoid combining diclofenac and ibuprofen. Potential addition of nonbiologic DMARD pending lab and x-ray findings in addition to clinical response to diclofenac. Bilateral chronic knee pain 02/25/2024 Assessment & Plan (02/25/2024 4:05 PM EST): Severe bl knee OA by exam; previous intra-articular steroid injections were effective. Discussed but deferred repeat intra-articular steroid injection today given concern for hyperglycemia. Baseline plain films; trial diclofenac as above. History of joint effusion 02/25/2024 Overview (02/25/2024): Patient-reported h/o repeated knee aspirations through (?) [facility] ortho Minor trauma to bl knees c. 2012 Assessment & Plan (02/25/2024 4:04 PM EST): No joint effusion present on exam today; no relevant records, including specifically synovial fluid studies, available for my review today Family History Medical History Relation Comments Diabetes Father Thyroid disease Maternal Aunt Coronary artery disease Maternal Grandmother Cancer Mother Thyroid disease Sister Relation Status Comments Father Maternal Aunt Maternal Grandmother Mother Sister Social History Tobacco Use Types Packs/Day Years Used Date Smoking Tobacco: Former Cigarettes Smokeless Tobacco: Never Tobacco Cessation:Counseling Given: Not Answered Alcohol Use Standard Drinks/Week Comments Not Currently 0 (1 standard drink = 0.6 oz pur e alcohol) Education Answer Date Recorded Are you interested in more education? Not on angella e 09/01/2023 Are you concerned about learning? Not on file 09/01/2023 No 09/01/2023 No 09/01/2023 Digital Access Answer Date Recorded No 09/01/2023 No 09/01/2023 Reliable internet access at home? Not on file 09/01/2023 Device with a working camera? Not on file Comments Unknown Sex and Gender Information Value Date Recorded Sex Assigned at Not on file Legal Sex Female 1:47 PM EDT Gender Identity Not on file Sexual Orientation Not on file Last Filed Vital Signs Vital Sign Reading Time Taken Comments Blood Pressure 128/80 02/25/2024 2:26 PM EST Pulse 82 02/25/2024 2:26 PM EST Temperature - - Respiratory Rate - - Oxygen Saturation 98% 02/25/2024 2:26 PM EST Inhaled Oxygen Concentration - - Weight 111.6 kg (246 lb) 02/25/2024 2:26 PM EST Height - - Body Mass Index - - Plan of Treatment Health Maintenance Due Date Last Done Comments Adult Td,Tdap Booster 1979 DEPRESSION SCREENING 1991 SMOKING Hx and SMOKELESS TOBACCO SCREENING 11/25/1992 HIV ONE-TIME SCREENING (18-6 5 YEARS) 11/25/1997 PAP SMEAR 11/25/2000 MAMMOGRAM 2019 INFLUENZA VACCINE (#1) 2024 COVID-19 VACCINE (2023-2 5 season) 2024 CREATININE LEVEL 02/24/2025 02/25/2024 HEPATITIS C SCREENING Completed 05/08/2022 HEPATITIS A VACCINES Aged Out 12/30/2023, 05/08/2022 No longer eligible based on patient's age to complete this topic HIB VACCINES Aged Out No longer eligi ble based on patient's age to complete this topic MENINGOCOCCAL VACCINES (ACWY) Aged Out No longer eligible based on patient's age to complete this topic MENINGOCOCCAL VACCINES (B) Aged Out N o longer eligible based on patient's age to complete this topic PNEUMOCOCCAL VACCINES (0-49 years) Aged Out No longer eligible b ased on patient's age to complete this topic Medical Devices Not on file Procedures Procedure Name Priority Date/Time Associated Diagnosis Comments COMPREHENSIVE METABOLIC PANEL Routine 02/25/2024 3:43 PM EST Seronegative rheumatoid arthritis History of joint effusion from Last 3 Months or Most Recently Relevant to Health Maintenance Results * (ABNORMAL) Comprehensive metabolic panel (02/25/2024 3:43 PM EST) SODIUM 136 133 - 146 mmol/L POTASSIUM 4.2 3.3 - 5.1 mmol/L CHLORIDE 100 96 - 108 mmol/L CO2 28 21 - 35 mmol/L BUN 12 6 - 19 mg/dL CREATININE 0.70 0.5 - 1.5 mg/dL GLUCOSE 251(H) 70 - 99 mg/dL ALBUMIN 3.9 3.9 - 4.8 g/dL TOTAL PROTEIN 7.6 6.5 - 8.0 g/dL CALCIUM 9.3 8.4 - 10.3 mg/dL ALKALINE PHOSPHATASE 128(H) 39 - 117 U/L TOTAL BILIRUBIN <0.2 0.0 - 1.2 mg/dL AST 19 0 - 37 U/L ALT 15 0 - 40 U/L GLOBULIN 3.7 1 - 4.8 g/dL EGFR 109 >59 mL/min/1.7 3m2 Comment:Estimated glomerular filtration rate calculated using the CKD-EPI refit equation. ANION GAP 12 10 - 20 mmol/L Blood 02/25/2024 3:43 PM EST 02/25/2024 3:52 PM EST us Beatriz Cummings MD, MPH LAB BLOOD ORDERABLES Fin al Result [address] [place] [address] from Last 3 Months or Most Recently Relevant to Health Maintenance Insurance [employer] Care Teams Housing Officer Relationship Specialty Start Date End Date Bridget Kitchen PA-C [address] [place] [id number] PCP - General Physician Director Of Curriculum And Instruction 06/25/23 Additional Source Comments The information contained in this document represents components of the legal health record. It is not the complete legal health record.[facility]
--- OUTSIDE RECORDS SUMMARY | 2024-11-01 16:36 | XMS_ITS | Encounter Summary ---
Author Organization [facility] Address [address] [facility] [address] [place] [address] Phone Care Team Providers Care Trailer Sections Assembler Name Role Phone Bridget Kitchen PA-C Primary Care Provid er Encounter Details Date Type Department Care Team (Latest Contact Info) Description 02/25/2024 Ancillary Orders [facility] Rheumatology [address] [place] [address] Beatriz Cummings MD, MPH [address] [facility], [address] [place] [address] [email or web address] Seronegative rheumatoid arthritis (Primary Dx); History of joint effusion Social History Tobacco Use Types Packs/Day Years Used Date Smoking Tobacco: Former Cigarettes Smokeless Tobacco: Never Alcohol Use Standard Drinks/Week Comments Not Currently [...] on file Sexual Orientation Not on file documented as of this encounter Plan of Treatment Not on file documented as of this encounter Results * XR FOOT 3 OR MORE VIEWS (LEFT) (02/25/2024 3:54 PM EST) Anatomical Region Laterality Modality Foot Left Computed Radiogr aphy 02/26/2024 2:52 PM EST Impressions 02/26/2024 2:58 PM EST Multifocal areas of marginal and periarticular irregularity and subchondral lucencies, possibly reflecting erosions. Recommend correlation with inflammatory markers. Periarticular location also raises the possibility of gout. Narrative 02/26/2024 2:58 PM EST XR FOOT 3 OR MORE VIEWS (LEFT), XR FOOT 3 OR MORE VIEWS (RIGHT) Referring clinician's provided indication for this examination in Epic: Pain COMPARISON: None FINDINGS: No acute fracture or dislocation. Multifocal areas of marginal and periarticular irregularity, most conspicuous within the lateral aspect of the right second metatarsal head, the medial aspect of the left fifth proximal phalanx base. Additional areas of subchondral lucency, most notable about the bilateral hallux IP and IP joints. No acute fracture or dislocation. Mild scattered degenerative changes. No significant soft tissue swelling. Procedure Note Gerardo Reilly MD - 02/26/2024 XR FOOT 3 OR MORE VIEWS (LEFT), XR FOOT 3 OR MORE VIEWS (RIGHT) Referring clinician's provided indication for this examination in Epic:Pain COMPARISON: None FINDINGS: No acute fracture or dislocation. Multifocal areas of marginal andperiarticular irregularity, most conspicuous within the lateral aspect ofthe right second metatarsal head, the medial aspect of the left fifthproximal phalanx base. Additional areas of subchondral lucency, mostnotable about the bilateral hallux IP and IP joints. No acute fracture ordislocation. Mild scattered degenerative changes. No significant softtissue swelling. IMPRESSION: Multifocal areas of marginal and periarticular irregularity andsubchondral lucencies, possibly reflecting erosions. Recommend correlationwith inflammatory markers. Periarticular location also raises thepossibility of gout. us Beatriz Cummings MD, MPH IMG XR LOWER EXTREMITY F inal Result documented in this encounter Visit Diagnoses Diagnosis Seronegative rheumatoid arthritis Rheumatoid arthritis History of joint effusion Seronegative rheumatoid arthritis- Primary Rheumatoid arthritis History of joint effusion documented in this encounter Care Teams Trailer Sections Assembler Relationship Specialty Start Date End Date Bridget Kitchen PA-C [facility] [place] [address] PCP - General Physician Tacking Stitch Remover 06/25/23 documented as of this encounter Additional Source Comments The information contained in this document represents components of the legal health record. It is not the complete legal health record.[facility]
--- OUTSIDE RECORDS SUMMARY | 2024-11-01 16:37 | XMS_ITS | Clinical Summary ---
Author Organization [employer] [facility] Address [address] [facility] 7[address] [place] [address] Care Team Providers Care Rn Imaging Name Role Phone Unavailable Primary Care Provider Unavailabl e Allergies Active Allergy Reactions Criticality Noted Date Comments Penicillins Swelling 03/19/2022 Medications QUEtiapine (SEROquel) 25 MG tablet TAKE 1 TABLET BY MOUTH TWICE A DAY NEEDED FOR ANXIETY, 2ND LINE FOR ANXIETY 3 Active gabapentin (Neurontin) 300 MG capsule 3 Active Lantus 100 UNIT/ML injection INJECT 50 UNITS AT BEDTIME ROTATE INJECTION SITES 2 Active Insulin Lispro 100 UNIT/ML solution INJECT 10 UNITS SUBCUTANEOUSLY 3 TIMES A DAY BEFORE MEALS 2 Active hydrOXYzine HCl (Atarax) 25 MG tablet Take 25 mg by mouth if needed in the morning, at noon, and at bedtime. 2 Active methadone (Dolophine) 10 MG tablet Take by mouth. Activ e Encounters Date Type Department Care Team Description 10/12/2024 Population Health Risk Score [facility] (C[facility]) Department [address] [id number] Provider, Population Health Generic 09/02/2024 Patient Outreach [facility] [address] [place] [id number] [facility] 08/19/2024 Patient Outreach [facility] [address] [place], [place] [phone] [facility] from Last 3 Months Social History Tobacco Use Types Packs/Day Years Used Date Smoking Tobacco: Every Day Cigarettes Smokeless Tobacco: Current Tobacco Cessation:Ready to Q uit: Not Asked; Counseling Given: Not Answered Comments:Vapes Comments Unknown Sex and Gender Information Value Date Recorded Sex Assigned at Female 03/18/2022 2:40 PM EST Legal Sex Female 2:06 PM EST Gender Identity Female 03/18/2022 2:40 PM EST Sexual Orientation Don't know 03/18/2022 2: 40 PM EST Plan of Treatment Health Maintenance Due Date Last Done Comments Dental Prophylaxis 1979 Depression Screening 1979 Lipid Panel 1979 SDOH Screening 1979 Disability Screening 1979 Alcohol/Substance Use Screening 1991 Family Planning (PISQ) 11/25/1994 HPV Vaccines (1 - 3-dose series) 11/25/1994 Hepatitis C Screening 11/25/1997 Pap Smear 11/25/2000 Pneumococcal Vaccine: Pediatrics (0 to 5 Years) and At-Risk Patients (6 to 49) Years (2 of 2 - PCV) 12/11/2006 12/11/2005 Cervical Cancer Screening 11/25/2009 HPV/Cotest 11/25/2009 Mammogram 2019 DTaP/Tdap/Td Vaccines (2 - Td or Tdap) 10/06/2022 10/06/2012 Dental Oral Exam 10/31/2022 04/29/2022 Tobacco Screening 03/19/2023 03/19/2022 Dental X-Ray: Bitewings 03/20/2023 03/19/2022 Hepatitis B Vaccines (3 of 3 - Hep B Twinrix 3-dose series) 05/29/2024 12/30/2023, 05/08/2022 COVID-19 Vaccine ( season) 2024 Influenza Vaccine (#1) 2024 3, 2012, 12/12/2011, Additional history exists Dental X-Ray: Full Mouth 03/20/2025 03/19/2022 Zoster Vaccines (1 of 2) 11/25/2029 RSV Patients and Patients Aged 60 years or older (1 - 1-dose 75+ series) 11/25/2054 HIV Screening Completed 05/08/2022, 05/08/2022 Hepatitis A Vaccines Aged Out 12/30/2023, 05/09/19 23 No longer eligible based on patient's age to complete this topic HIB Vaccines Aged Out No longer eligi ble based on patient's age to complete this topic IPV Vaccines Aged Out No longer eligi ble based on patient's age to complete this topic Meningococcal B Vaccine Aged Out No l onger eligible based on patient's age to complete this topic Meningococcal Vaccine Aged Out No lynn jose rafael eligible based on patient's age to complete this topic RSV under 20 months Aged Out No longe r eligible based on patient's age to complete this topic Rotavirus Vaccines Aged Out No longer eligible based on patient's age to complete this topic Procedures Procedure Name Priority Date/Time Associated Diagnosis Comments COMPREHENSIVE ORAL EVALUATION - NEW OR ESTABLISHED PATIENT Routine 04/29/2022 4:00 PM EDT INTRAORAL - COMPLETE SERIES OF RADIOGRAPHIC IMAGES Routine 03/19/2022 10:00 AM EST Encounter for dental examination from Last 3 Months or Most Recently Relevant to Health Maintenance Insurance [employer]
--- OUTSIDE RECORDS SUMMARY | 2024-11-01 16:37 | XMS_ITS | Encounter Summary ---
Author Organization [facility] Address [address] [place] [address] Care Team Providers Care Supervisor Pipeline Maintenance Name Role Phone Bridget Kitchen PA-C Primary Care Provider [phone] Encounter Details Date Type Department Care Team (Late st Contact Info) Description 03/15/2024 Interim Notes [facility] [address] [place] [phone] [place] [address] [place], [place] [phone] Social History Tobacco Use Types Packs/Day Years Used Date Smoking Tobacco: Former Cigarettes Smokeless Tobacco: Former Alcohol Use Standard Drinks/Week Comments Not Currently 0 (1 standard drink = 0.6 oz pur e alcohol) Social Connections Answer Date Recorded Connectedness 1 07/03/2023 Financial Resource Strain Answer Date R ecorded Financial Resource Strain 1 2023 Stress Answer Date Recorded Stress 1 07/03/2023 Physical Activity Answer Date Recorded Physical Activity 0 05/23/2020 Food Insecurity Answer Date Recorded Food 1 07/03/2023 Transportation Needs Answer Date Record ed Transportation 1 07/03/2023 Housing Stability Answer Date Recorded Housing 2 07/03/2023 Safety and Environment Answer Date Adan rded Safety 1 07/03/2023 Utilities Answer Date Recorded Utilities 1 07/03/2023 Employment Answer Date Recorded Stress 0 05/08/2022 Comments No Sex and Gender Information Value Date Recorded Sex Assigned at Female 05/29/2020 5:42 AM PDT Legal Sex Female 10:16 AM PDT Gender Identity Female 05/29/2020 5:42 AM PDT Sexual Orientation Don't know 05/29/2020 5: 42 AM PDT COVID-19 Exposure Response Date Recorded In the last 10 days, have yo u been in contact with someone who was confirmed or suspected to have Coronavirus/COVID-19? No / Unsure 02/24/2024 10:10 AM EST documented as of this encounter Plan of Treatment Not on file documented as of this encounter Visit Diagnoses Not on filedocumented in this encounter Additional Health Concerns Assessment Noted Time PHQ-9 Depression Total Score: 0 07/03/19 1:24 PM PDT A Depression follow-up plan has been documented for the patient 03/22/2021 12:46 PM PST documented as of this encounter Care Teams Supervisor Pipeline Maintenance Relationship Specialty Start Date End Date Bridget Kitchen PA-C [address] [place] [address] PCP - General Internal Medicine 04/21/23 documented as of this encounter
--- OUTSIDE RECORDS SUMMARY | 2024-11-01 16:37 | XMS_ITS | Clinical Summary ---
Author Organization [facility] Address [address] [place] [address] Care Team Providers Care Manual Arts Teacher Name Role Phone Bridget Kitchen PA-C Primary Care Provider Source Comments PLEASE NOTE, if this patient is a minor, it may be UNLAWFUL to discuss sensitive information that is contained in these records (such as FAMILY PLANNING, MENTAL HEALTH or SUBSTANCE ABUSE) with the minor patient's parent or other person without the patient's specific authorization.[facility] Allergies Active Allergy Reactions Criticality Noted Date Comments Ibuprofen 05/28/2021 Other reaction(s): Unknown Penicillins Other (See Comments) 07/16/2020 c/o: ulcers Tramadol 05/28/2021 Other reaction(s): Unknown Medications lancing device miscIndications:T ype 2 diabetes mellitus with hyperglycemia, with long-term current use of insulin ([facility]) 1 Device by miscellaneous route once daily 1 Each 1 05/29/19 22 Active guanFACINE (INTUNIV) 3 mg 24 hr tablet [facility] [place], [place] [phone] 28.00 Tablet 28 Authorized by: LAQUITA MEJIA 06/13/19 23 Active prazosin (MINIPRESS) 1 mg capsuleIndication s:Sleep disturbance TAKE 1 CAPSULE BY MOUTH TWICE A DAY 180 Capsule 10/29/19 23 Active QUEtiapine (SEROQUEL) 25 mg tabletIndications :Generalized anxiety disorder TAKE 1 TABLET BY MOUTH AT BEDTIME 30 Tablet 2 10/29/19 23 Active VRAYLAR 6 mg cap Take 1 Capsule by mouth every morning [facility]/pharmacy #[id number] [place], [place] [phone] 30 Each 2 30 TAKE 1 CAPSULE BY MOUTH EVERY MORNING Source: Surescripts (Fill History, Ambulatory)Author ized by: LAQUITA MEJIA 12/30/19 23 Active clonazePAM (KLONOPIN) 1 mg tablet [facility]/pharmacy #[address] [place] [address] 30 Each 2 30 TAKE 1 TABLET BY MOUTH TWICE A DAY ONLY NEEDED FOR SEVERE PANIC ATTACKS Source: Surescripts (Fill History, Ambulatory)Author ized by: LAQUITA MEJIA 12/28/19 23 Active zolpidem (AMBIEN) 10 mg tablet Take 10 mg by mouth nightly at bedtime [facility]/pharmacy #[id number] [place], [place] [phone] 30 Each 2 30 TAKE 1 TABLET BY MOUTH AT BEDTIME Source: Surescripts (Fill History, Ambulatory)Author ized by: LAQUITA MEJIA 12/27/19 Active flash glucose sensor kit Use to check BG three times daily as directed. Change sensor every 14 days. (Freestyle Andie 3) 2 Kit 11 01/22/20 23 Active cyclobenzaprine (FLEXERIL) 10 mg tabletIndications :Acute bilateral low back pain without sciatica Take 1 Tablet by mouth 3 (three) times daily as needed for muscle spasms 90 Tablet 05/07/19 24 Active MISCELLANEOUS MEDICAL SUPPLY MISCIndications:B ilateral leg edema by miscellaneous route daily. Dx: bilateral lower extremity edema, RACHELE: 99, Supply: knee high compression stockings, compression goal of 10-15 mm Hg. 3 Each 1 10/16/19 24 Active TRESIBA FLEXTOUCH U-200 200 unit/mL (3 mL)Indications:Ty pe 2 diabetes mellitus with hyperglycemia, with long-term current use of insulin ([facility]) Inject 60 units into the skin every morning and 40 units at bedtime (Max 100 units/day). dose change 18 mL 5 11/02/19 24 Active cyanocobalamin (VITAMIN B-12) 1,000 mcg tablet Take 1 Tablet by mouth once daily 90 Tablet 3 11/04/19 24 Active metFORMIN XR (GLUCOPHAGE-XR) 500 mg 24 hr tabletIndications :Type 2 diabetes mellitus with diabetic polyneuropathy, with long-term current use of insulin ([facility]) Take 2 Tablets by mouth 2 (two) times daily with a meal 360 Tablet 2 11/18/19 24 Active pen needle, diabetic 31 gauge x 06/24 ndleIndications:T ype 2 diabetes mellitus with diabetic polyneuropathy, with long-term current use of insulin ([facility]) Use to administer insulin up to 5 times daily 200 Each 11 11/18/19 24 Active baclofen (LIORESAL) 10 mg tabletIndications :Acute bilateral low back pain with bilateral sciatica TAKE ONE TABLET BY MOUTH THREE TIMES DAILY 90 Tablet 11/23/19 24 Active gabapentin (NEURONTIN) 400 mg capsuleIndication s:Painful diabetic neuropathy ([facility]) Take 1 Capsule by mouth 3 (three) times daily 90 Capsule 3 12/30/19 24 Active MISCELLANEOUS MEDICAL SUPPLY MISCIndications:F ibromyalgia,Painf ul diabetic neuropathy ([facility]),Memory deficit,Difficult y reading by miscellaneous route daily. Raised toilet seat, commode bathroom assist for daily use. 1 Each 12/30/19 24 Active blood-glucose meter monitoring kitIndications:Ty pe 2 diabetes mellitus with diabetic polyneuropathy, with long-term current use of insulin ([facility]) 1 Each daily. Freestyle lite meter, disp 1, lifetime need, dx E11.9 1 Each 01/15/20 24 Active insulin glargine 100 unit/mL (3 mL) penIndications:Ty pe 2 diabetes mellitus with diabetic polyneuropathy, with long-term current use of insulin ([facility]) Inject 40 Units into the skin 2 (two) times daily 30 mL 5 02/23/19 25 Active glucose 4 gram chewable tabletIndications :Type 2 diabetes mellitus with diabetic polyneuropathy, with long-term current use of insulin ([facility]) Place 4 Tablets into mouth, chew and swallow as needed for low blood sugar (below 70) DXE11.65 50 Tablet 5 02/23/19 25 Active FREESTYLE ANDIE 3 READER misc 11/16/19 24 Active GVOKE HYPOPEN 1-PACK 1 mg/0.2 mL atIn 02/17/19 25 Active nicotine, polacrilex, (NICORETTE) 4 mg gum Chew 1 piece in mouth every two hours as needed Cinnamon flavor 02/01/20 24 Active nicotine (NICODERM, STEP 1) 21 mg/24 hr patch Apply 1 patch to skin once a day / take it off at bedtime 02/01/20 24 Active blood-glucose sensor (FREESTYLE ANDIE 3 PLUS SENSOR) deviIndications:T ype 2 diabetes mellitus with diabetic polyneuropathy, with long-term current use of insulin ([facility]) Place 1 sensor to back of upper arm every 15 days. Use to monitor blood sugar continuously (Freestyle Andie 3 Plus) 2 Each 03/14/19 25 Active insulin lispro 100 unit/mL injection pen Inject 6-18 Units into the skin 3 (three) times daily before meals according to sliding scale by endocrinology 15 mL 03/18/19 25 Active hydroxychloroquin e (PLAQUENIL) 200 mg tablet Take 200 mg by mouth twice a day 03/07/19 25 Active naloxone (NARCAN) 4 mg/actuation nasal sprayIndications: Seronegative rheumatoid arthritis ([facility]) Place 1 [place] into the nostril(s) as needed for opioid reversal (Overdose) 2 Each 03/21/19 25 Active glucagon (BAQSIMI) 3 mg/actuation spryIndications:T ype 2 diabetes mellitus with diabetic polyneuropathy, with long-term current use of insulin ([facility]) Administer 3 mg (one actuation) into a single nostril if glucose is less than 54 mg/dL; if no response, may repeat in 15 minutes using a new intranasal device. 2 Each 03/23/19 25 Active diclofenac sodium (VOLTAREN) [address] tablet Take 75 mg by mouth twice a day 02/24/19 25 Active blood sugar diagnostic stripsIndications :Type 2 diabetes mellitus with diabetic polyneuropathy, with long-term current use of insulin ([facility]) Use to test blood glucose three times daily. (Freestyle Lite) 100 Each 06/01/19 25 Active lancets (FREESTYLE LANCETS) 28 gaugeIndications: Type 2 diabetes mellitus with diabetic polyneuropathy, with long-term current use of insulin ([facility]) Use to test blood glucose three times daily. (Freestyle Lancets) 100 Each 06/01/19 25 Active alcohol swabsIndications: Type 2 diabetes mellitus with diabetic polyneuropathy, with long-term current use of insulin ([facility]) Use to test blood glucose three times daily. 100 Each 11 06/01/19 25 Active atorvastatin (LIPITOR) 40 mg tabletIndications :Type 2 diabetes mellitus with hyperglycemia ([facility]) Take 1 Tablet by mouth nightly at bedtime For cholesterol. 90 Tablet 1 08/01/19 25 Active Active Problems Problem Noted Date Diagnosed Date Food insecurity 04/01/2024 Financial difficulties 04/01/2024 Housing instability 04/01/2024 Unsatisfactory living conditions 04/01/2024 Lack of access to transportation 04/01/2024 History of pancreatitis 03/23/2024 Overview (03/23/2024): When pt was [age] years old per pt reports History of tobacco use disorder 03/23/2024 Overview (03/23/2024): Patient reports quitting tobacco use around early 2023. 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 Painful diabetic neuropathy ([facility]) 07/11 Type 2 diabetes mellitus wit h diabetic polyneuropathy, with long-term current use of insulin ([facility]) 12/28/2014 Overview (03/23/2024): DM dx: when pt was 22 years old per patient reports Glucometer: Freestyle Andie 3 (counseled patient to buy new Freestyle Lite glucometer) Current Diabetes RX: Tresiba U-200 - inject 60 units every morning and 40 units in the evening Insulin LISPRO - inject 8-18 units three times daily before meals according to sliding scale by endocrinology (see scale in notes) Metformin ER 500 mg - 2 tablets twice daily with a meal GLP-1 RA - will not add due to personal history of pancreatitis (when pt was 18- 19 years old) ANDREY-I/ARB: BP is well-controlled, urine microalbumin/Scr ratio is <30 mg/g and eGFR >60 mL/min/1.73m2 as of 07/03/23. Per KDIGO guidelines, patient is low-risk for microalbuminuria, will hold off on ANDERY-I/ARB for now. Statin: Atorvastatin 40 mg daily at bedtime Pneumococcal vaccine: PCV20 recommended Diabetes foot exam: Referral pending as of 09/15/23 Diabetes retinal exam: 12/04/23 at [facility] OD: mild nonproliferative diabetic retinopathy without macular edema OS: no diabetic retinopathy, no macular edema Hyperopia, astigmatism, presbyopia Resolved Problems Problem Noted Date Diagnosed Date Resolved Date Tobacco dependence 05/08/2022 Foot pain 12/24/2015 05/08/2022 Encounters Date Type Department Care Team Description 08/02/2024 Erroneous Telephone Encounter [address] [id number] Dottie Bruno from Last 3 Months Immunizations Immunization Administration Dates Next Due HEP A-HEP B ([facility]) 12/30/2023,05/08/2022 Social History Tobacco Use Types Packs/Day Years Used Date Smoking Tobacco: Former Cigarettes Smokeless Tobacco: Former Tobacco Cessation:Counseling Given: Not Answered Alcohol Use Standard Drinks/Week Comments Not Currently 0 (1 standard drink = 0.6 oz pur e alcohol) Social Connections Answer Date Recorded How often do you feel lonely or isolated from th ose around you? 1 04/05/2024 Financial Resource Strain Answer Date R ecorded Hard to pay for: Food 2 04/05/2024 Stress Answer Date Recorded Do you feel these kinds of stress these days? 1 04/05/2024 Physical Activity Answer Date Recorded Physical Activity 0 05/23/2020 Food Insecurity Answer Date Recorded Hard to pay for: Food 2 04/05/2024 Transportation Needs Answer Date Record ed Hard to pay for: Transportation 2 04/05/2024 Housing Stability Answer Date Recorded Hard to pay for: Rent/Mortgage payment 1 04/05/2024 Safety and Environment Answer Date Adan rded Safety 1 07/03/2023 Utilities Answer Date Recorded Hard to pay for: Utilities 2 04/05 Employment Answer Date Recorded Stress 0 05/08/2022 Comments No Sex and Gender Information Value Date Recorded Sex Assigned at Female 05/29/2020 5:42 AM PDT Legal Sex Female 10:16 AM PDT Gender Identity Female 05/29/2020 5:42 AM PDT Sexual Orientation Don't know 05/29/2020 5: 42 AM PDT Last Filed Vital Signs Vital Sign Reading Time Taken Comments Blood Pressure 100/54 03/23/2024 11:12 AM EST Pulse 108 03/23/2024 11:25 AM EST Temperature 36.6 C (97.8 F) 12/30/2023 1:48 PM EST Respiratory Rate 20 03/23/2024 11:12 AM EST Oxygen Saturation 98% 03/23/2024 11:12 AM EST Inhaled Oxygen Concentration - - Weight 117 kg (258 lb) 03/23/2024 11:12 AM EST Height 154.9 cm (5' 0.98 ) 03/23/2024 11:[address] Body Mass Index 48.77 03/23/2024 11:12 AM EST Plan of Treatment Health Maintenance Due Date Last Done Comments Diabetes Foot Exam 1979 Imm-DTaP/Tdap/Td (1 - Tdap) 11/25/1998 Imm-HPV (1 - 3-dose SCDM series) 11/25/2006 Dental Examination 05/11/2023 05/08/2022 (M anaged by Outside Provider) Anxiety Screening 08/05/2023 08/04/2022 Hemoglobin A1c 01/15/2024 10/16/2023, 05/2 05/2023, 12/18/2022, Additional history exists Imm-Hepatitis A (3 of 3 - He p A Twinrix risk 3-dose series) 05/29/2024 12/30/2023, 05/08/2022 Imm-Hepatitis B (3 of 3 - He p B Twinrix 3-dose series) 05/29/2024 12/30/2023, 05/08/2022 Depression Monitoring 06/18/2024 03/21/2024 , 07/03/2023, 08/04/2022, Additional history exists Lipid Screening 07/02/2024 07/03/2023, 04/11, 09/07/2020 Relationship Safety Screening/Counseling 07/02/2024 07/03/2023, 05/08/2022 Serum Creatinine 07/02/2024 07/03/2023, , 09/07/2020 Syphilis Screening 07/02/2024 07/03/2023, 0 05/30/2022, 05/08/2022 Urine Albumin Creatinine Rat io Screening 07/02/2024 07/03/2023, 05/08/2022, 09/07/2020 Imm-Influenza (#1) 2024 Retinopathy Screening 12/03/2024 12/04/2023 Annual Wellness (Adult): Indicated (All Coverage) 12/29/2024 12/30/2023, 05/08/2022 Tobacco Screening 03/21/2025 03/21/2024, , 06/02/2022, Additional history exists HIV Screening Discontinued 05/08/2022 Hepatitis C Screening Completed 05/08/2022 Alcohol and Drug Screen Completed 02/23/19, 07/03/2023, 08/04/2022, Additional history exists [id number] Discontinued Imm-Pneumococcal Discontinued Procedures Procedure Name Priority Date/Time Associated Diagnosis Comments EYE EXAM 12/04/2023 3:00 AM EDT HEMOGLOBIN GLYCOSYLATED A1C Routine 10/16/2023 12:00 PM EDT Type 2 diabetes mellitus with diabetic polyneuropathy, with long-term current use of insulin ([facility]) RPR (MONITOR) W/REFL TITER Routine 07/03/2023 1:58 PM EDT Encounter to establish care COMPREHENSIVE METABOLIC PANEL Routine 07/03/2023 1:58 PM EDT Primary hypertension LIPIDS W RFLX TO DIRECT LDL Routine 07/03/2023 1:58 PM EDT Primary hypertension MICROALBUMIN/CREATINI NE RATIO, URINE, RANDOM Routine 07/03/2023 1:58 PM EDT Type 2 diabetes mellitus with hyperglycemia, with long-term current use of insulin ([facility]) HIV 1/2 AG & AB W/RFLX (4TH GEN) Routine 05/08/2022 11:02 AM EDT HEPATITIS C AB W/RFLX HCV RNA, QT, RT PCR Routine 05/08/2022 11:02 AM EDT Painful diabetic neuropathy ([facility]) Type 2 diabetes mellitus with hyperglycemia, without long-term current use of insulin ([facility]) Generalized anxiety disorder Seronegative rheumatoid arthritis ([facility]) Class 3 severe obesity due to excess calories with serious comorbidity and body mass index (BMI) of 40.0 to 44.9 in adult ([facility]) Non-compliant patient Encounter for screening for other viral diseases Panic disorder with agoraphobia, mild agoraphobic avoidance and severe panic attacks Sleep disturbance Tobacco dependence Cocaine abuse ([facility]) from Last 3 Months or Most Recently Relevant to Health Maintenance Results * EYE EXAM (12/04/2023 3:00 AM EDT) 12/04/2023 3:00 AM EDT Bridget Kitchen PA-C OTHER Edited Resul t - Final * (ABNORMAL) HEMOGLOBIN GLYCOSYLATED A1C (10/16/2023 12:00 PM EDT) HEMOGLOBIN A1C 7.6(H) <5.7 % of total Hgb [facility] Comment: For someone without known diabetes, a hemoglobin A1c value of 6.5% or greater indicates that they may have diabetes and this should be confirmed with a follow-up test. For someone with known diabetes, a value <7% indicates that their diabetes is well controlled and a value greater than or equal to 7% indicates suboptimal control. A1c targets should be individualized based on duration of diabetes, age, comorbid conditions, and other considerations. Currently, no consensus exists regarding use of hemoglobin A1c for diagnosis of diabetes for children. Blood Blood / Unknown 10/16/2023 1 2:00 PM EDT 10/16/2023 12:00 PM EDT Sebastian RodirguezD LAB - BLOOD DRAW Edited R bryanult - Final Performing Organization Address [facility] Co de Phone Number [facility] [address] [address], [facility] [address] [phone] * (ABNORMAL) LIPIDS W RFLX TO DIRECT LDL (07/03/2023 1:58 PM EDT) CHOLESTEROL, TOTAL 178 <200 mg/dL [facility] HDL CHOLESTEROL 42(L) > OR = 50 mg/dL [facility] TRIGLYCERIDES 84 <150 mg/dL [facility] LDL-CHOLESTEROL 118(H) 99 mg/dL (calc) [facility] Comment: Reference range: <100 Desirable range <100 mg/dL for primary prevention; <70 mg/dL for patients with CHD or diabetic patients with > or = 2 CHD risk factors. LDL-C is now calculated using the Campbell-Vernon calculation, which is a validated novel method providing better accuracy than the Friedewald equation in the estimation of LDL-C. Campbell SS et al. CHRISTEL. 2013;310(19): 0166-6721 (http://education.ikaSystems/faq/QUB097) CHOL/HDLC RATIO 4.2 <5.0 (calc) [facility] NON-HDL CHOLESTEROL 136(H) <130 mg/dL (calc) [facility] Comment: For patients with diabetes plus 1 major ASCVD risk factor, treating to a non-HDL-C goal of <100 mg/dL (LDL-C of <70 mg/dL) is considered a therapeutic option. Blood Blood / Unknown 07/03/2023 1 :58 PM EDT 07/03/2023 1:58 PM EDT Narrative [facility] - 07/05/2023 9:17 AM EDT FASTING:UNKNOWN Bridget Kitchen PA-C LAB - BLOOD DRAW Final Resul t Performing Organization Address City/[facility]/ZIP Co de Phone Number [facility] [address] [address], [facility] [address] [address] * RPR (MONITOR) W/REFL TITER (07/03/2023 1:58 PM EDT) RPR (MONITOR) W/REFL TITER NON-REACT LISE NON-REACT LISE [facility] Blood Blood / Unknown 07/03/2023 1 :58 PM EDT 07/03/2023 1:58 PM EDT Narrative [employer] - 07/05/2023 9:17 AM EDT FASTING:UNKNOWN Bridget TURNER-C LAB - BLOOD DRAW Final Resul t Performing Organization Address [facility] de Phone Number [facility] [address] [address], [facility] [address] [address] * MICROALBUMIN/CREATININE RATIO, URINE, RANDOM (07/03/2023 1:58 PM EDT) CREATININE, RANDOM URINE 232 20 - 275 mg/dL [facility] MICROALBUMIN 0.9 mg/dL [email or web address] [facility] Comment: Reference Range Not established MICROALBUMIN/CREA TININE RATIO, RANDOM URINE 4 <30 mg/g creat [facility] Comment: The ADA defines abnormalities in albumin excretion as follows: Albuminuria Category Result (mg/g creatinine) Normal to Mildly increased <30 Moderately increased 30-299 Severely increased > OR = 300 The ADA recommends that at least two of three specimens collected within a 3-6 month period be abnormal before considering a patient to be within a diagnostic category. Urine Urine specimen / Unknown 07/03/2023 1:58 PM EDT 07/03/2023 1:58 PM EDT Narrative [employer] - 07/05/2023 9:17 AM EDT FASTING:UNKNOWN Bridget Kitchen PA-C LAB URINE AMBULATORY Final R esult Performing Organization Address [facility]/State/ZIP Co de Phone Number [facility] [address] [address], [facility] [address] [place] [address] * (ABNORMAL) COMPREHENSIVE METABOLIC PANEL (07/03/2023 1:58 PM EDT) GLUCOSE 134(H) 65 - 99 mg/dL [facility] Comment: Fasting reference interval For someone without known diabetes, a glucose value >125 mg/dL indicates that they may have diabetes and this should be confirmed with a follow-up test. UREA NITROGEN (BUN) 19 7 - 25 mg/dL [facility] CREATININE (blood) 0.78 0.50 - 0.99 mg/dL [facility] EGFR 97 > OR = 60 mL/min/1. 73m2 [facility] BUN/CREATININE RATIO SEE NOTE: [facility] Comment: Not Reported: BUN and Creatinine are within reference range. SODIUM 140 135 - 146 mmol/L [facility] POTASSIUM 4.5 3.5 - 5.3 mmol/L [facility] CHLORIDE 103 98 - 110 mmol/L [facility] CARBON DIOXIDE 30 20 - 32 mmol/L [facility] CALCIUM 8.6 8.6 - 10.2 mg/dL [facility] PROTEIN, TOTAL 7.1 6.1 - 8.1 g/dL [facility] ALBUMIN 3.8 3.6 - 5.1 g/dL [facility] GLOBULIN 3.3 1.9 - 3.7 g/dL (calc) [facility] ALBUMIN/GLOBULI N RATIO 1.2 1.0 - 2.5 (calc) [facility] BILIRUBIN, TOTAL 0.3 0.2 - 1.2 mg/dL [facility] ALKALINE PHOSPHATASE 115 31 - 125 U/L [facility] AST 18 10 - 30 U/L [facility] ALT 17 6 - 29 U/L [facility] Blood Blood / Unknown 07/03/2023 1 :58 PM EDT 07/03/2023 1:58 PM EDT Narrative [facility] - 07/05/2023 9:17 AM EDT FASTING:UNKNOWN Bridget Kitchen PA-C LAB - BLOOD DRAW Edited Resu lt - Final Performing Organization Address [facility]/ZIP Co de Phone Number [facility] [address] [address], [facility] [address] [phone] * HEPATITIS C AB W/RFLX HCV RNA, QT, RT PCR (05/08/2022 11:02 AM EDT) HEPATITIS C ANTIBODY NON-REACT LISE NON-REACT LISE [facility] SIGNAL TO CUT-OFF 0.12 <1.00 [facility] Comment: HCV antibody was non-reactive. There is no laboratory evidence of HCV infection. In most cases, no further action is required. However, if recent HCV exposure is suspected, a test for HCV RNA (test code 12618) is suggested. For additional information please refer to http://education.[employer]faq/YFF12e6 (This link is being provided for informational/ educational purposes only.) Blood Blood / Unknown 05/08/2022 1 1:02 AM EDT 05/08/2022 11:02 AM EDT Evette Gildatal BENCH GRINDER-C LAB - BLOOD DRAW Edited Result - Final Performing Organization Address [facility]/ZIP Co de Phone Number [facility] [address] [address], [facility] [address] [address] * HIV 1/2 AG & AB W/RFLX (4TH GEN) (05/08/2022 11:02 AM EDT) HIV AG/AB, 4TH GEN NON-REAC TIVE NON-REAC TIVE [facility] Comment: HIV-1 antigen and HIV-1/HIV-2 antibodies were not detected. There is no laboratory evidence of HIV infection. PLEASE NOTE: This information has been disclosed to you from records whose confidentiality may be protected by state law. If your state requires such protection, then the state law prohibits you from making any further disclosure of the information without the specific written consent of the person to whom it pertains, or as otherwise permitted by law. A general authorization for the release of medical or other information is NOT sufficient for this purpose. For additional information please refer to http://education.[employer]ipital/faq/VWV421 (This link is being provided for informational/ educational purposes only.) The performance of this assay has not been clinically validated in patients less than 2 years old. 05/08/2022 11:0 2 AM EDT 05/08/2022 11:02 AM EDT us Evette Dean [facility] LAB - BLOOD DRAW Final R [employer] [place] [facility] [address] [id number], [facility] [address] [place] [address] from Last 3 Months or Most Recently Relevant to Health Maintenance Insurance [address] [place] DENTAL Care Teams Manual Arts Teacher Relationship Specialty Start Date End Date Bridget Kitchen PA-C [address] [place] [address] PCP - General Internal Medicine 04/21/23
== END 2024-11-01 14:18 | disposition left against medical advice (07) ==
LOC: HO.ED 13:31
PROVIDERS: Emergency Provider Emergency Medicine
DX: F10.10 Alcohol abuse, uncomplicated (principal); F14.10 Cocaine abuse, uncomplicated; Z71.41 Alcohol abuse counseling and surveillance of alcoholic
CPT/HCPCS: 99281